=== PATIENT | male | born 1955 | race Caucasian/White ===

== ENCOUNTER 2017-03-09 10:07 | Day surgery (SDC) | payer BC ==
[~2017-03-09] VITALS: Ht 180.3 cm; Wt 95.3 kg
[~2017-03-09 10:07] MED LIST: BUPIVACAINE MPF 0.5% 30 ML VIAL. ONE; HYDROmorphone 2 MG/ML VIAL IV PRN; IV RINGERS,LACTATED 1000ML 1,000 ML IV SCH; LIDOCAINE 1% 1 ML SYRINGE. ID PRN; LIDOCAINE 1% PF 30 ML VIAL. ONE; MORPHINE SULFATE 2 MG/ML DISP.SYRIN. IV PRN; MORPHINE SULFATE 4 MG/ML DISP.SYRIN. IV PRN; ONDANSETRON PF 4 MG/2 ML VIAL. IV PRN; PROCHLORPERAZINE 10 MG/2 ML VIAL. IV PRN; fentaNYL PF VIAL 100 MCG/2 ML VIAL IV PRN
[2017-03-09] MEDS ORDERED: BENA40TA2 PO (10:59)
[2017-03-09] MEDS ORDERED: CARV25TA2 PO (11:00)
[2017-03-09] MEDS ORDERED: IBUP200C9 PO (11:01)
[2017-03-09] MEDS ORDERED: PROPOFOL 20 ML IV ONE (12:31)
[2017-03-09] MEDS ORDERED: DEXAMETHASONE SOD PHOS 20 MG/5 ML VIAL. ONE (12:31)
[2017-03-09] MEDS ORDERED: ONDANSETRON PF 4 MG/2 ML VIAL. ONE (12:31)
[2017-03-09] MEDS ORDERED: LIDOCAINE 2% PF Vial for OR 5 ML VIAL. ONE (12:31)
[2017-03-09] MEDS ORDERED: MIDAZOLAM HCL/PF 2 MG/2 ML VIAL. ONE (12:31)
[2017-03-09] MEDS ORDERED: fentaNYL PF VIAL 100 MCG/2 ML VIAL ONE (12:31)
[2017-03-09] MEDS ORDERED: SCOPOLAMINE 1.5MG PATCH. TD ONE ×2 (14:10→14:15)
--- NOTE | 2017-03-09 14:11 | DISCH ---
DISCHARGE INSTRUCTIONS Condition on Discharge Condition on Discharge: Stable Activity After Discharge Activity Instructions for Disc: Other, see below Other activity instructions: wiggle fingers as tolerated Bathing Instructions: Shower-keep dressing dry Lifting Instructions after Dis: No heavy lifting, No pulling or pushing Weight Bearing Status after Di: Non weight bearing Diet after Discharge Diet after Discharge: Regular Wound Incision Care Wound/Incision Care: Ice to area for comfort, Keep wound/cast CDI, Keep wound elevated, Change dressing Other wound/incision instructi: ok to change dressing after 2 days Contacting the [facility] after DC Call your doctor for: Concerns you may have Follow-Up Follow up with: Sascha in 2wks ALMA CHAVEZ II, MD Mar 09, 2017 14:11
--- NOTE | 2017-03-09 14:12 | PDOC ---
BRIEF OPERATIVE NOTE Date: Mar 09, 2017 Pre-Op Diagnosis L trigger thumb Post-Op Diagnosis same Procedure Performed Open L trigger thumb release Surgeon Sascha Anesthesiologist Linsey Anesthesia Type: General Blood Loss 5mL Complications none ALMA CHAVEZ II, MD Mar 09, 2017 14:12
[2017-03-09] MEDS ORDERED: HYDR-971 PO (15:02)
[2017-03-09] MEDS ORDERED: DOCU-109 PO (15:02)
[2017-03-09] MEDS ORDERED: ONDA4TAB10 SL (15:03)
[2017-03-09] MEDS ORDERED: HYDROcodone/APAP 5/325MG 1 TAB TABLET PO ONE (15:15)
[2017-03-09 15:35] VITALS: BP 107/79
--- NOTE | 2017-03-09 20:22 | OP ---
DATE OF SURGERY: 03/09/2017 SURGEON: Pablo Chavez MD BOOT REPAIRER: None. ANESTHESIA: General plus local. PREOPERATIVE DIAGNOSIS: Left trigger thumb. POSTOPERATIVE DIAGNOSIS: Left trigger thumb. PROCEDURE PERFORMED: Open left trigger thumb release. COMPLICATIONS: None. ESTIMATED BLOOD LOSS: 5 mL. TOURNIQUET TIME: 12 minutes. REASON FOR PROCEDURE: The patient is a very pleasant 62-year-old gentleman who has had trigger fingers for quite sometime that have been getting a little bit worse. He has responded well to injections in the past, which were to be dealt with more definitively and therefore we had discussion of risks, benefits, alternatives to open left trigger thumb release. He elected to proceed. DESCRIPTION OF PROCEDURE: The patient was greeted in the preoperative area by myself. Correct extremity was marked and verified. He was taken back to the operative suite and antibiotics were started en route. Once in the OR, transferred gently supine to the OR table and secured to the bed after successful induction of general anesthetic. We then placed a nonsterile tourniquet to his left upper arm and proceeded to prep and drape the left upper extremity in our usual sterile fashion and conducted a standard preoperative timeout. After accomplishing this, we exsanguinated the extremity with an Esmarch and insufflated the tourniquet to 250 mmHg. I palpated for the nodule in his tendon sheath and made an incision in a thumb flexor crease at this area. I used a fine-tipped mosquito to spread the subcutaneous tissue and used bipolar cautery for hemostasis. I spread down until I encountered the flexor tendon and then positioned Ragnell retractors to retract the subcutaneous tissue. I continued dissecting and identifying the A1 zari. I then transected this with my tenotomy scissors and inspected distal to ensure I had accomplished a complete release, which I had. We then irrigated out the incision and closed skin with a simple interrupted 2-0 nylon. We then injected 4 mL of local anesthetic mixture into the kala-incisional area. I then placed Xeroform and sterile gauze in a padded soft splint. After this, we took the drapes and he is awakened from anesthesia. Tourniquet was let down. He tolerated the surgery well. No complications. Prior to completion of wound closure, all counts were reported as correct x 2. At the conclusion of surgery, he was awakened from anesthesia, transferred gently supine to the recovery room cart and taken to PACU in stable and extubated condition. Postoperative plan is for active finger range of motion. He can change the dressing in 2-3 days. We will see him back in my clinic in 2 weeks, sooner should problems arise. PABLO CHAVEZ MD DR: EVIN/surinder JOB#: [id number] / [id number] NAYELI
[2017-03-10] MEDS ORDERED: IV RINGERS,LACTATED 1000ML 1,000 ML IV SCH (07:00)
== END 2017-03-09 15:35 | disposition home or self-care (01) ==
LOC: SURG 10:07
PROVIDERS: ATTEND Orthopaedic Surgery Sports Medicine
DX: M65.312 Trigger thumb, left thumb (principal); I10 Essential (primary) hypertension; Z87.442 Personal history of urinary calculi; Z98.890 Other specified postprocedural states; F17.200 Nicotine dependence, unspecified, uncomplicated
CPT/HCPCS: 26055; J0690; J1100; J2001; J2250; J2405; J2704; J3010; J3490; J7120

== ENCOUNTER → 2017-05-25 | Day surgery (SDC) | payer BC ==
[~2017-05-25] VITALS: Ht 177.8 cm; Wt 90.7 kg
[~2017-05-25] MED LIST changes: +BENA40TA2 PO; +CARV25TA2 PO; +DEXAMETHASONE SOD PHOS 20 MG/5 ML VIAL. ONE; +DOCU-109 PO; +HYDR-971 PO; +HYDROcodone/APAP 5/325MG 1 TAB TABLET PO PRN; +IBUP200C9 PO; +KETOROLAC 30 MG/ML INJ FOR OR. INJ ONE; -LIDOCAINE 1% 1 ML SYRINGE. ID PRN; +LIDOCAINE 1% PF 2 ML VIAL. ID PRN; +LIDOCAINE 2% PF Vial for OR 5 ML VIAL. ONE; +MIDAZOLAM HCL/PF 2 MG/2 ML VIAL. ONE; -MORPHINE SULFATE 4 MG/ML DISP.SYRIN. IV PRN; +ONDA4TAB10 PO; +ONDA4TAB10 SL; +ONDANSETRON PF 4 MG/2 ML VIAL. ONE; +PROPOFOL 20 ML IV ONE; +SCOPOLAMINE 1.5MG PATCH. TD ONE; +SEVOFLURANE 16 TO 30 MINUTES. IH ONE; +fentaNYL PF VIAL 100 MCG/2 ML VIAL ONE
--- NOTE | 2017-05-25 07:21 | DISCH ---
DISCHARGE INSTRUCTIONS Condition on Discharge Condition on Discharge: Stable Activity After Discharge Activity Instructions for Disc: Other ROM activity Other activity instructions: wiggles fingers Bathing Instructions: Shower-keep dressing dry Lifting Instructions after Dis: No heavy lifting, No pulling or pushing Weight Bearing Status after Di: As tolerated Diet after Discharge Diet after Discharge: Regular Wound Incision Care Wound/Incision Care: Ice to area for comfort, Keep wound/cast CDI, Keep wound elevated, Change dressing Contacting the DR. after DC Call your doctor for: Concerns you may have Follow-Up Follow up with: Sascha in 2wks Treatment/Equipment after DC Adaptive Equipment Issued: None ALMA CHAVEZ II, MD May 25, 2017 07:21
--- NOTE | 2017-05-25 07:26 | PDOC ---
BRIEF OPERATIVE NOTE Date: May 25, 2017 Pre-Op Diagnosis R index finger TF Post-Op Diagnosis same Procedure Performed Open R index finger TF release Surgeon Sascha Anesthesia Type: General, Local ALMA CHAVEZ II, MD May 25, 2017 07:26
--- NOTE | 2017-05-25 08:23 | OP ---
DATE OF SURGERY: 05/25/2017 SURGEON: Pablo Chavez MD. GEM STONE CUTTER: None. PREOPERATIVE DIAGNOSIS: Right index finger trigger finger. POSTOPERATIVE DIAGNOSIS: Right index finger trigger finger. PROCEDURE PERFORMED: Open right trigger finger release. COMPLICATIONS: None. ESTIMATED BLOOD LOSS: 5 mL. TOURNIQUET TIME: 9 minutes. ANESTHESIA: General plus local at the end. REASON FOR PROCEDURE: The patient is a very pleasant gentleman who has underwent trigger finger release on his contralateral hand about 2 months ago. He had tried injections to both of these, but they were still interfering with his activities of daily living and therefore, we had a discussion of risks, benefits, alternatives to open trigger finger release and he elected to proceed. DESCRIPTION OF PROCEDURE: The patient was greeted in the preoperative area by myself, correct extremity was marked and verified. He was taken to the operative suite and antibiotics started en route. Once in the OR, transferred gently supine to the OR table and secured in bed with all pressure points padded. We then placed a nonsterile tourniquet to his right arm and then proceeded to prep and drape the right upper extremity in our usual sterile fashion and conducted a standard preoperative timeout. After this was accomplished, I palpated for the palpable nodule on his flexor tendon and made an incision adjacent to his second digit metacarpal head volarly. I dissected subcutaneous tissue with tenotomies until I identified the flexor tendon and found the A1 zari. I placed a Ragnell retractor to visualize the zari and spread above it to ensure that the nerve was not overlying it. I then used my tenotomy to transect the A1 zari. I delivered the flexor tendons into the operative field to ensure accomplish complete release. I felt no catching. I then irrigated out the operative incision. I used bipolar cautery at a couple of little bleeders. I then closed the skin with simple interrupted 2-0 nylon. We then placed Xeroform gauze and padded soft dressing over his hand and wrist. He was then awakened from anesthesia. He tolerated the surgery well. No complications. At the conclusion of surgery, he was awakened from anesthesia, transferred gently supine to the recovery room cart and taken to PACU in stable and extubated condition. My postoperative plan is to discharge him home. Active range of motion of his fingers was encouraged. We will see him back in 2 weeks, sooner should problems arise. PABLO CHAVEZ MD DR: EVIN/surinder JOB#: [id number] / [id number]
[2017-05-25 09:02] VITALS: BP 128/72
== END | disposition home or self-care (01) ==
LOC: SURG 06:20
PROVIDERS: ATTEND Orthopaedic Surgery Sports Medicine
DX: M65.321 Trigger finger, right index finger (principal); I10 Essential (primary) hypertension; Z98.890 Other specified postprocedural states; Z87.891 Personal history of nicotine dependence
CPT/HCPCS: J0690; J1100; J1885; J2250; J2405; J2704; J3010; J3490; J2001

== ENCOUNTER → 2018-11-02 | Outpatient (CLI) | payer BC ==
[2017-05-25 09:02] VITALS: BP 128/72
[~2018-11-02] MED LIST changes: -BENA40TA2 PO; +BENA40TA3 PO; -BUPIVACAINE MPF 0.5% 30 ML VIAL. ONE; -DEXAMETHASONE SOD PHOS 20 MG/5 ML VIAL. ONE; +HYDR-3164 PO; -HYDR-971 PO; -HYDROcodone/APAP 5/325MG 1 TAB TABLET PO PRN; -HYDROmorphone 2 MG/ML VIAL IV PRN; -IV RINGERS,LACTATED 1000ML 1,000 ML IV SCH; -KETOROLAC 30 MG/ML INJ FOR OR. INJ ONE; -LIDOCAINE 1% PF 2 ML VIAL. ID PRN; -LIDOCAINE 1% PF 30 ML VIAL. ONE; -LIDOCAINE 2% PF Vial for OR 5 ML VIAL. ONE; -MIDAZOLAM HCL/PF 2 MG/2 ML VIAL. ONE; -MORPHINE SULFATE 2 MG/ML DISP.SYRIN. IV PRN; -ONDANSETRON PF 4 MG/2 ML VIAL. IV PRN; -ONDANSETRON PF 4 MG/2 ML VIAL. ONE; -PROCHLORPERAZINE 10 MG/2 ML VIAL. IV PRN; -PROPOFOL 20 ML IV ONE; -SCOPOLAMINE 1.5MG PATCH. TD ONE; -SEVOFLURANE 16 TO 30 MINUTES. IH ONE; -fentaNYL PF VIAL 100 MCG/2 ML VIAL IV PRN; -fentaNYL PF VIAL 100 MCG/2 ML VIAL ONE
--- NOTE | 2018-11-02 16:22 | KCIC ---
Examination: MRI of the right shoulder without contrast HISTORY: History of osteoarthritis, chronic shoulder pain COMPARISON: None available Technique: Multiplanar, multisequence MR imaging of the right shoulder performed without contrast. FINDINGS: The long head of the biceps tendon is within the bicipital groove. The long head of the biceps tendon is attached to the labral anchor grossly appears intact. The subscapularis tendon appear intact. There is moderate increased signal identified in the subscapularis tendon, supraspinatus and infraspinatus tendons likely tendinosis. There is near full-thickness bursal sided tear of the supraspinatus tendon. Severe degenerative changes identified in the glenohumeral joint with large osteophyte formation identified in the inferior humerus head. Subchondral cystic changes identified in the humerus head and in the glenoid region. There is diffuse decreased attenuation noted throughout the labrum likely secondary to degeneration. Moderate degenerative changes identified acromioclavicular joint. The axis of the humerus head is slightly directed posteriorly within the glenoid. The muscle bulk grossly appears unremarkable. The acromion is type II. IMPRESSION: 1. Small amount of fluid identified subacromial/subdeltoid bursa with near full-thickness bursal sided tear of the anterior supraspinatus. 2. The axis of the humerus head is slightly directed posteriorly within the glenoid. Correlate for multidirectional instability. 3. Rotator cuff tendinosis. Prior surgical changes identified in the rotator cuff. 4. Severe degenerative changes glenohumeral joint. Electronically signed by: Ellis Lancaster MD (11/02/2018 4:19 PM) [id number]
== END | disposition home or self-care (01) ==
LOC: KCIC MRI 10-31 10:28
PROVIDERS: ATTEND Orthopaedic Surgery Sports Medicine
DX: M19.011 Primary osteoarthritis, right shoulder (principal); M75.101 Unspecified rotator cuff tear or rupture of right shoulder, not specified as traumatic
CPT/HCPCS: 73221

== ENCOUNTER 2019-02-14 08:24 | Day surgery (SDC) | payer BC ==
[~2019-02-14] VITALS: Ht 177.8 cm; Wt 93.4 kg
[~2019-02-14 08:24] MED LIST changes: +DEXAMETHASONE SOD PHOS 4 MG/ML VIAL ONE; +HYDROmorphone 2 MG/ML VIAL IV PRN; +IV RINGERS,LACTATED 1000ML 1,000 ML IV SCH; +LIDOCAINE 1% PF 2 ML VIAL. ID PRN; +LIDOCAINE 2% PF 5 ML VIAL. ONE; +MORPHINE SULFATE 2 MG/ML VIAL. IV PRN; +ONDANSETRON PF 4 MG/2 ML VIAL. IV PRN; +ONDANSETRON PF 4 MG/2 ML VIAL. ONE; +PROCHLORPERAZINE 10 MG/2 ML VIAL. IV PRN; +PROPOFOL 20 ML IV ONE; +ceFAZolin 2GM PREMIX 2 GM/50 ML BAG IV ONE; +fentaNYL PF VIAL 100 MCG/2 ML VIAL IV PRN; +fentaNYL PF VIAL 100 MCG/2 ML VIAL ONE; +osteobiflex
[2019-02-14] MEDS ORDERED: LIDOCAINE 1% 20 ML VIAL. ONE ×2 (08:39→08:47)
[2019-02-14] MEDS ORDERED: methylPREDNISolone ACETATE 80 MG/ML VIAL. ONE (08:40)
[2019-02-14] MEDS ORDERED: BUPIVACAINE MPF 0.5% 30 ML VIAL. ONE (08:47)
--- NOTE | 2019-02-14 09:27 | DISCH ---
DISCHARGE INSTRUCTIONS Condition on Discharge Condition on Discharge: Stable Activity After Discharge Activity Instructions for Disc: Other ROM activity Other activity instructions: AROM ok at fingers Bathing Instructions: Shower-keep dressing dry Lifting Instructions after Dis: No heavy lifting, No pulling or pushing Weight Bearing Status after Di: As tolerated Diet after Discharge Diet after Discharge: Regular Wound Incision Care Wound/Incision Care: Ice to area for comfort, Keep wound/cast CDI, Keep wound elevated, Change dressing Contacting the DR. after DC Call your doctor for: Concerns you may have Follow-Up Follow up with: Sascha in 2 wks Treatment/Equipment after DC Adaptive Equipment Issued: None ALMA CHAVEZ II, MD Feb 14, 2019 09:27
[2019-02-14] MEDS ORDERED: SCOPOLAMINE 1.5MG PATCH. TD ONE (09:45)
[2019-02-14] MEDS ORDERED: diphenhydrAMINE 50 MG/ML VIAL ONE (10:04)
--- NOTE | 2019-02-14 10:37 | PDOC4 ---
Operative Note Operative Note Date of procedure: 02/14/2019 Surgeon: Pablo Chavez Preoperative diagnosis: #1 Right ring finger trigger finger #2 right knee degenerative joint disease, primary Postoperative diagnosis: Same Procedure performed: #1 Open right fourth digit trigger finger release #2 injection of right knee joint with 80 mg Depo-Medrol and 4 mL of 1% plain lidocaine Anesthesia: Gen. Tourniquet time: 11 min Blood loss: 2 ml Complications: none Findings: Thickened nodule at flexor tendon at second digit Reason for procedure: Patient is a very pleasant 63-year-old gentleman who presented to my clinic complaining of painful catching and locking and interference with his activities of daily living secondary to development of triggering at his right fourth digit. We had tried injections in the past and this was not successful and he requested an open right trigger finger release, given his history of Dupuytren's disease, I did discuss the difference in the pathology between the 2 and possible worsening of Dupuytren's after this procedure. He had full range of motion at his digits, his only complaint was a painful catching and locking therefore thought it reasonable to proceed with the trigger finger surgery alone. Description of procedure: Patient was greeted in the preoperative area by myself for the correct digit was verified and marked. He was taken back to the operative suite. He was transferred gently supine to the operative room table and secured to bed with all pressure points padded. He underwent successful induction of a conscious sedation monitored by anesthesia. We then conducted our standard preoperative timeout. After this, I used a sterile prep over the superolateral right knee and injected the Depo-Medrol and local anesthetic without complication. There was cleansed and dried and a sterile dressing was applied to his right knee. Nonsterile tourniquet was applied to his right upper extremity and the right upper extremity was prepped and draped in our usual sterile fashion. I then made a incision transversely in his palm just proximal to the metacarpal head on the volar aspect, I spread down to the flexor tendon with a tenotomy scissor and identified the A1 zari, I placed Ragnell retractors to assist with visualization and to visualize that there was no overlying nerve. After this, I released the A1 zari. I then used the curved mosquito clamp to delivered the tendons and to the operative field to help ensure that accomplished a complete release. The wound was then irrigated out. Skin was then closed with 2-0 nylon in a simple interrupted fashion after thoroughly irrigating the operative field out with sterile fluid. Local anesthetic was injected into the kala-incisional soft tissue. Hemostasis was achieved with bipolar cautery. All counts correct 2 prior to wound closure. At the conclusion, Xeroform and a sterile soft bulky dressing was applied to his hand and secured around his wrist. He tolerated surgery well. No competitions. At the conclusion, he was awakened from his sedation and transferred to a supine to the recovery room cart and taken to the PACU in a stable and extubated condition. Postoperative plan is to encourage wound elevation and active range of motion in his digits. Wound care was provided in verbal and written form. We will see him back in 2 weeks, sooner should a problem arise. PABLO CHAVEZ II, MD Feb 14, 2019 10:37
[2019-02-14] MEDS ORDERED: DOCU-109 PO (10:57)
[2019-02-14] MEDS ORDERED: ONDA8TAB9 PO/SL (10:57)
[2019-02-14] MEDS ORDERED: HYDR-3164 PO (10:58)
[2019-02-14 11:44] VITALS: BP 130/92
[2019-02-14] MEDS ORDERED: oxyCODONE/APAP 5/325 1 TAB TABLET ONE (12:02)
[2019-02-14] MEDS ORDERED: oxyCODONE/APAP 5/325 1 TAB TABLET PO ONE (12:15)
[2019-02-28] MEDS ORDERED: HYDR-3164 PO (08:09)
== END 2019-02-14 12:10 | disposition home or self-care (01) ==
LOC: SURG 08:24
PROVIDERS: ATTEND Orthopaedic Surgery Sports Medicine
DX: M65.341 Trigger finger, right ring finger (principal); M17.11 Unilateral primary osteoarthritis, right knee; I10 Essential (primary) hypertension; Z98.890 Other specified postprocedural states; Z72.89 Other problems related to lifestyle
CPT/HCPCS: 20610; 26055; A7015; J0696; J1040; J1100; J1200; J2001; J2405; J2704; J3010; J3490

== ENCOUNTER → 2019-02-28 | Day surgery (SDC) | payer BC ==
[~2019-02-28] VITALS: Ht 177.8 cm; Wt 92.1 kg
[~2019-02-28] MED LIST changes: +BUPIVACAINE MPF 0.5% 30 ML VIAL. ONE; +HYDROcodone/APAP 5/325MG 1 TAB TABLET PO ONE; +KETOROLAC 30 MG/ML INJ FOR OR. INJ ONE; +LIDOCAINE 1% 20 ML VIAL. ONE; -LIDOCAINE 1% PF 2 ML VIAL. ID PRN; +ONDA8TAB9 PO/SL; +SCOPOLAMINE 1.5MG PATCH. TD ONE; +SEVOFLURANE 16 TO 30 MINUTES. IH ONE; +SEVOFLURANE 31 TO 60 MINUTES. IH ONE; -fentaNYL PF VIAL 100 MCG/2 ML VIAL ONE
--- NOTE | 2019-02-28 06:47 | DISCH ---
DISCHARGE INSTRUCTIONS Condition on Discharge Condition on Discharge: Stable Activity After Discharge Activity Instructions for Disc: Other ROM activity Other activity instructions: wiggle fingers Bathing Instructions: Shower-keep dressing dry Lifting Instructions after Dis: No heavy lifting, No pulling or pushing Weight Bearing Status after Di: As tolerated Diet after Discharge Diet after Discharge: Regular Wound Incision Care Wound/Incision Care: Ice to area for comfort, Keep wound/cast CDI, Keep wound elevated, Change dressing Contacting the DR. after DC Call your doctor for: Concerns you may have Follow-Up Follow up with: Sascha in 2 wks Treatment/Equipment after DC Adaptive Equipment Issued: None ALMA CHAVEZ II, MD Feb 28, 2019 06:47
[2019-02-28 07:31] VITALS: BP 96/61
--- NOTE | 2019-02-28 08:46 | PDOC4 ---
Operative Note Operative Note Due to procedure: 02/28/2019 Surgeon: Pablo Chavez Preoperative diagnosis: Left ring finger trigger finger Postoperative diagnosis: Same Procedure performed: Open left fourth digit trigger finger release Anesthesia: Sedation Tourniquet time: 10 min Blood loss: 2 ml Complications: none Findings: Thickened nodule at flexor tendon at fourth digit Reason for procedure: Patient is a very pleasant 63-year-old gentleman who has undergone prior trigger finger release with myself and recently presented to my clinic complaining of painful catching and locking and interference with his activities of daily living secondary to development of triggering at his left fourth digit. Therefore, we reviewed the risks, benefits, and alternatives to the surgery and he wished to proceed. Description of procedure: Patient was greeted in the preoperative area by myself for the correct digit was verified and marked. He was transferred gently supine to the operative room table and secured to bed with all pressure points padded. He underwent successful induction of a conscious sedation monitored by anesthesia. Nonsterile tourniquet was applied to his right upper extremity and the right upper trimming was prepped and draped in our usual sterile fashion and we conducted our standard preoperative timeout. I then made a incision transversely in his palm just proximal to the metacarpal head on the volar aspect, I spread down to the flexor tendon with a tenotomy scissor and identified the A1 zari, I placed Ragnell retractors to assist with visualization and to visualize that there was no overlying nerve. After this, I released the A1 zari. I then used the curved mosquito clamp to delivered the tendons and to the operative field to help ensure that accomplished a complete release. The wound was then irrigated out. Skin was then closed with 2-0 nylon in a simple interrupted fashion after thoroughly irrigating the operative field out with sterile fluid. Local anesthetic was injected into the kala-incisional soft tissue. Hemostasis was achieved with bipolar cautery. All counts correct 2 prior to wound closure. At the conclusion, Xeroform and a sterile soft bulky dressing was applied to his hand and secured around his wrist. He tolerated surgery well. No complications. At the conclusion, he was awakened from his sedation and transferred to a supine to the recovery room cart and taken to the PACU in a stable and extubated condition. Postoperative plan is to encourage wound elevation and active range of motion in his digits. Wound care was provided in verbal and written form. We will see him back in 2 weeks, sooner should a problem arise. PABLO CHAVEZ II, MD Feb 28, 2019 08:46
== END ==
LOC: SURG 05:43
PROVIDERS: ATTEND Orthopaedic Surgery Sports Medicine
DX: M65.342 Trigger finger, left ring finger (principal)
CPT/HCPCS: 26055; J1100; J1885; J2001; J2405; J2704; J3490; A7015; J0696